=== PATIENT | female | born 1980 | race Caucasian/White ===

== ENCOUNTER 2023-01-23 11:38 | Outpatient (CLI) | payer OTHER | END 2023-01-23 11:39 | disposition home or self-care (01) | LOC: BICMAMMO 11:38 | PROVIDERS: ATTEND Family Medicine | DX: Z12.31 Encounter for screening mammogram for malignant neoplasm of breast (principal); Z85.72 Personal history of non-Hodgkin lymphomas; Z98.82 Breast implant status | CPT/HCPCS: 77063; 77067 ==